=== PATIENT | male | born 1950 | race Caucasian/White ===

== ENCOUNTER 2020-12-06 08:51 | Day surgery (SDC) | payer OTHER ==
[2020-12-06 09:58] VITALS: TEMP 98
[2020-12-06 10:07] VITALS: BMI 19.7
[2020-12-06] MEDS ORDERED: KETAMINE HCL 200 MG/20 ML VIAL ONE (11:05)
[2020-12-06] MEDS ORDERED: DEXAMETHASONE SOD PHOSPHATE 4 MG/1 ML VIAL ONE (11:05)
[2020-12-06] MEDS ORDERED: ONDANSETRON 4 MG/2 ML VIAL ONE (11:05)
[2020-12-06] MEDS ORDERED: PROPOFOL 20 ML ONE (11:08)
[2020-12-06 12:56] VITALS: BP 140/81; PULSE 87
[2020-12-07 12:07] LABS: SARS-CoV-2 NAA Not Detected (Not Detected)
== END 2020-12-06 12:55 | disposition home or self-care (01) ==
LOC: FECT 08:51
PROVIDERS: ATTEND Psychiatry & Neurology Psychiatry
PROC: GZB4ZZZ Other Electroconvulsive Therapy (ICD-10-PCS; principal; 2020-12-06 11:00)
DX: F32.9 Major depressive disorder, single episode, unspecified (principal)
CPT/HCPCS: 90870; 94760; C9803; U0003; U0005

== ENCOUNTER 2020-12-09 05:50 | Day surgery (SDC) | payer OTHER ==
[2020-12-06 09:49] VITALS: BMI 19.6
[2020-12-09] MEDS ORDERED: KETAMINE HCL 500 MG/10 ML VIAL ONE (09:51)
[2020-12-09 10:20] VITALS: TEMP 98.2
[2020-12-09 11:21] VITALS: BP 129/82; PULSE 84
== END 2020-12-09 12:00 | disposition home or self-care (01) ==
LOC: FECT 05:50
PROVIDERS: ATTEND Psychiatry & Neurology Psychiatry
PROC: GZB4ZZZ Other Electroconvulsive Therapy (ICD-10-PCS; principal; 2020-12-09 09:00)
DX: F32.9 Major depressive disorder, single episode, unspecified (principal)
CPT/HCPCS: 90870; 94760

== ENCOUNTER 2020-12-10 06:40 | Day surgery (SDC) | payer OTHER ==
[2020-12-07 07:40] VITALS: BMI 19.7
[2020-12-10] MEDS ORDERED: KETAMINE HCL 500 MG/10 ML VIAL ONE (07:53)
[2020-12-10] MEDS ORDERED: KETOROLAC TROMETHAMINE 30 MG/1 ML VIAL ONE (08:00)
[2020-12-10 09:10] VITALS: BP 122/80; PULSE 87; TEMP 98
[2020-12-11 11:10] LABS: SARS-CoV-2 NAA Not Detected (Not Detected)
== END 2020-12-10 09:40 | disposition home or self-care (01) ==
LOC: FECT 06:40
PROVIDERS: ATTEND Psychiatry & Neurology Psychiatry
PROC: GZB4ZZZ Other Electroconvulsive Therapy (ICD-10-PCS; principal; 2020-12-10 08:30)
DX: F32.9 Major depressive disorder, single episode, unspecified (principal)
CPT/HCPCS: 90870; 94760; C9803; U0003; U0005

== ENCOUNTER 2020-12-13 08:10 | Day surgery (SDC) | payer OTHER ==
[2020-12-07 07:54] VITALS: BMI 19.7
[2020-12-13] MEDS ORDERED: KETAMINE HCL 500 MG/10 ML VIAL ONE (09:35)
[2020-12-13] MEDS ORDERED: DEXAMETHASONE SOD PHOSPHATE 4 MG/1 ML VIAL ONE (09:36)
[2020-12-13] MEDS ORDERED: KETOROLAC TROMETHAMINE 30 MG/1 ML VIAL ONE (09:36)
[2020-12-13] MEDS ORDERED: ONDANSETRON 4 MG/2 ML VIAL ONE (09:36)
[2020-12-13] MEDS ORDERED: SEVOFLURANE 250 ML BTL ONE (09:47)
[2020-12-13] MEDS ORDERED: DESFLURANE GAS 240 ML BOTTLE IH ONE (09:47)
[2020-12-13 10:46] VITALS: PULSE 83; TEMP 97.7
[2020-12-13 11:35] VITALS: BP 126/78
[2020-12-14 08:08] LABS: SARS-CoV-2 NAA Not Detected (Not Detected)
== END 2020-12-13 12:00 | disposition home or self-care (01) ==
LOC: FECT 08:10
PROVIDERS: ATTEND Psychiatry & Neurology Psychiatry
PROC: GZB4ZZZ Other Electroconvulsive Therapy (ICD-10-PCS; principal; 2020-12-13 10:00)
DX: F32.9 Major depressive disorder, single episode, unspecified (principal)
CPT/HCPCS: 90870; 94760; C9803; U0003; U0005

== ENCOUNTER 2020-12-16 06:49 | Day surgery (SDC) | payer OTHER ==
[2020-12-13 14:28] VITALS: BMI 19.6
[2020-12-16] MEDS ORDERED: KETAMINE HCL 500 MG/10 ML VIAL ONE (08:30)
[2020-12-16 09:45] VITALS: TEMP 97.7
[2020-12-16 10:21] VITALS: BP 122/73; PULSE 88
[2020-12-17 07:07] LABS: SARS-CoV-2 NAA Not Detected (Not Detected)
== END 2020-12-16 10:30 | disposition home or self-care (01) ==
LOC: FECT 06:49
PROVIDERS: ATTEND Psychiatry & Neurology Psychiatry
PROC: GZB4ZZZ Other Electroconvulsive Therapy (ICD-10-PCS; principal; 2020-12-16 07:30)
DX: F32.9 Major depressive disorder, single episode, unspecified (principal)
CPT/HCPCS: 90870; 94760; C9803; U0003; U0005

== ENCOUNTER 2020-12-17 05:57 | Day surgery (SDC) | payer OTHER ==
[2020-12-14 07:08] VITALS: BMI 19.6
[2020-12-17] MEDS ORDERED: PROPOFOL 20 ML ONE (07:09)
[2020-12-17] MEDS ORDERED: SUCCINYLCHOLINE CHLORIDE 200 MG/10 ML SYRINGE ONE (07:09)
[2020-12-17] MEDS ORDERED: DEXAMETHASONE SOD PHOSPHATE 4 MG/1 ML VIAL ONE (07:09)
[2020-12-17] MEDS ORDERED: KETOROLAC TROMETHAMINE 30 MG/1 ML VIAL ONE (07:09)
[2020-12-17] MEDS ORDERED: ONDANSETRON 4 MG/2 ML VIAL ONE (07:09)
[2020-12-17] MEDS ORDERED: KETAMINE HCL 500 MG/10 ML VIAL ONE (07:11)
[2020-12-17] MEDS ORDERED: ONDANSETRON 4 MG/2 ML VIAL IVPUSH PRN (07:39)
[2020-12-17] MEDS ORDERED: LACTATED RINGERS SOLUTION 1,000 ML IV SCH (07:45)
[2020-12-17 08:33] VITALS: TEMP 98
[2020-12-17 08:51] VITALS: BP 139/79
[2020-12-17 09:28] VITALS: PULSE 80
== END 2020-12-17 09:10 | disposition home or self-care (01) ==
LOC: FECT 05:57
PROVIDERS: ATTEND Psychiatry & Neurology Psychiatry
PROC: GZB4ZZZ Other Electroconvulsive Therapy (ICD-10-PCS; principal; 2020-12-17 08:00)
DX: F32.9 Major depressive disorder, single episode, unspecified (principal)
CPT/HCPCS: 90870; 94760

== ENCOUNTER 2020-12-20 06:49 | Day surgery (SDC) | payer OTHER ==
[2020-12-14 07:12] VITALS: BMI 19.6
[2020-12-20] MEDS ORDERED: KETAMINE HCL 500 MG/10 ML VIAL ONE (09:15)
[2020-12-20 09:55] VITALS: TEMP 98.2
[2020-12-20 10:48] VITALS: BP 131/75; PULSE 82
[2020-12-21 07:07] LABS: SARS-CoV-2 NAA Not Detected (Not Detected)
== END 2020-12-20 11:15 | disposition home or self-care (01) ==
LOC: FECT 06:49
PROVIDERS: ATTEND Psychiatry & Neurology Psychiatry
PROC: GZB4ZZZ Other Electroconvulsive Therapy (ICD-10-PCS; principal; 2020-12-20 07:30)
DX: F32.9 Major depressive disorder, single episode, unspecified (principal)
CPT/HCPCS: 90870; 94760; C9803; U0003; U0005

== ENCOUNTER 2020-12-23 07:15 | Day surgery (SDC) | payer OTHER ==
[2020-12-14 07:36] VITALS: BMI 19.6
[2020-12-23] MEDS ORDERED: KETAMINE HCL 500 MG/10 ML VIAL ONE (08:23)
[2020-12-23] MEDS ORDERED: KETOROLAC TROMETHAMINE 30 MG/1 ML VIAL ONE (08:29)
[2020-12-23] MEDS ORDERED: DEXAMETHASONE SOD PHOSPHATE 4 MG/1 ML VIAL ONE (08:29)
[2020-12-23] MEDS ORDERED: ONDANSETRON 4 MG/2 ML VIAL ONE (08:29)
[2020-12-23 09:54] VITALS: TEMP 98
[2020-12-23 09:56] VITALS: BP 133/76; PULSE 87
== END 2020-12-23 10:15 | disposition home or self-care (01) ==
LOC: FECT 07:15
PROVIDERS: ATTEND Psychiatry & Neurology Psychiatry
PROC: GZB4ZZZ Other Electroconvulsive Therapy (ICD-10-PCS; principal; 2020-12-23 08:15)
DX: F32.9 Major depressive disorder, single episode, unspecified (principal)
CPT/HCPCS: 90870; 94760

== ENCOUNTER 2022-06-13 07:54 | Day surgery (SDC) | payer OTHER ==
[2022-06-12 16:23] VITALS: BMI 21.4
[2022-06-13] MEDS ORDERED: ACETAMINOPHEN INJECTION 100 ML IVPB ONE (09:44)
[2022-06-13] MEDS ORDERED: ACETAMINOPHEN 1000 MG/100 ML BAG IVPB ONE (10:10)
[2022-06-13 10:25] VITALS: RESP 18; TEMP 98
[2022-06-13 10:55] VITALS: BP 129/76; PULSE 71
== END 2022-06-13 10:57 | disposition home or self-care (01) ==
LOC: FECT 07:54
PROVIDERS: ATTEND Psychiatry & Neurology Psychiatry
PROC: GZB4ZZZ Other Electroconvulsive Therapy (ICD-10-PCS; principal; 2022-06-13 09:19)
DX: F32.A Depression, unspecified (principal)
CPT/HCPCS: 90870; 94760; C9803-CS; U0003; U0005

== ENCOUNTER 2022-06-15 07:42 | Day surgery (SDC) | payer OTHER ==
[2022-06-15 08:10] VITALS: BMI 21.4
[2022-06-15] MEDS ORDERED: ACETAMINOPHEN 1000 MG/100 ML BAG IVPB ONE (09:20)
[2022-06-15 09:41] VITALS: TEMP 97.3
[2022-06-15 10:06] VITALS: RESP 18
[2022-06-15 10:24] VITALS: BP 138/78; PULSE 78
== END 2022-06-15 10:46 | disposition home or self-care (01) ==
LOC: FECT 07:42
PROVIDERS: ATTEND Psychiatry & Neurology Psychiatry
PROC: GZB4ZZZ Other Electroconvulsive Therapy (ICD-10-PCS; principal; 2022-06-15 09:01)
DX: F33.2 Major depressive disorder, recurrent severe without psychotic features (principal)
CPT/HCPCS: 90870; 94760

== ENCOUNTER 2022-06-16 06:10 | Day surgery (SDC) | payer OTHER ==
[2022-06-12 17:20] VITALS: BMI 21.4
[2022-06-16 08:51] VITALS: TEMP 98
[2022-06-16 09:12] VITALS: RESP 18
[2022-06-16 09:51] VITALS: BP 140/86; PULSE 88
== END 2022-06-16 09:40 | disposition home or self-care (01) ==
LOC: FECT 06:10
PROVIDERS: ATTEND Psychiatry & Neurology Psychiatry
PROC: GZB4ZZZ Other Electroconvulsive Therapy (ICD-10-PCS; principal; 2022-06-16 08:30)
DX: F33.2 Major depressive disorder, recurrent severe without psychotic features (principal)
CPT/HCPCS: 90870; 94760

== ENCOUNTER 2022-06-20 06:31 | Day surgery (SDC) | payer OTHER ==
[2022-06-16 09:15] VITALS: BMI 21.4
[2022-06-20 10:01] VITALS: RESP 18
[2022-06-20 10:18] VITALS: TEMP 98
[2022-06-20 11:04] VITALS: BP 141/85; PULSE 86
== END 2022-06-20 10:35 | disposition home or self-care (01) ==
LOC: FECT 06:31
PROVIDERS: ATTEND Psychiatry & Neurology Psychiatry
PROC: GZB4ZZZ Other Electroconvulsive Therapy (ICD-10-PCS; principal; 2022-06-20 08:57)
DX: F32.A Depression, unspecified (principal)
CPT/HCPCS: 90870; 94760

== ENCOUNTER 2022-06-22 07:12 | Day surgery (SDC) | payer OTHER ==
[2022-06-20 15:39] VITALS: BMI 21.4
[2022-06-22 09:54] VITALS: RESP 16; TEMP 97.8
[2022-06-22 10:43] VITALS: BP 140/89; PULSE 82
== END 2022-06-22 10:39 | disposition home or self-care (01) ==
LOC: FECT 07:12
PROVIDERS: ATTEND Psychiatry & Neurology Psychiatry
PROC: GZB4ZZZ Other Electroconvulsive Therapy (ICD-10-PCS; principal; 2022-06-22 09:37)
DX: F32.A Depression, unspecified (principal)
CPT/HCPCS: 90870; 94760

== ENCOUNTER 2022-06-23 06:27 | Day surgery (SDC) | payer OTHER ==
[2022-06-20 15:31] VITALS: BMI 21.4
[2022-06-23 07:07] VITALS: RESP 18
[2022-06-23 09:33] VITALS: TEMP 97.8
[2022-06-23 09:43] VITALS: BP 132/76; PULSE 86
== END 2022-06-23 09:55 | disposition home or self-care (01) ==
LOC: FECT 06:27
PROVIDERS: ATTEND Psychiatry & Neurology Psychiatry
PROC: GZB4ZZZ Other Electroconvulsive Therapy (ICD-10-PCS; principal; 2022-06-23 08:39)
DX: F32.A Depression, unspecified (principal)
CPT/HCPCS: 90870; 94760; C9803-CS; U0003; U0005

== ENCOUNTER 2022-06-27 06:18 | Day surgery (SDC) | payer OTHER ==
[2022-06-20 15:48] VITALS: BMI 21.4
[2022-06-27 08:48] VITALS: RESP 18; TEMP 97.6
[2022-06-27 09:16] VITALS: BP 139/79; PULSE 87
== END 2022-06-27 09:25 | disposition home or self-care (01) ==
LOC: FECT 06:18
PROVIDERS: ATTEND Psychiatry & Neurology Psychiatry
PROC: GZB4ZZZ Other Electroconvulsive Therapy (ICD-10-PCS; principal; 2022-06-27 08:03)
DX: F32.A Depression, unspecified (principal)
CPT/HCPCS: 90870; 94760

== ENCOUNTER 2022-07-07 06:19 | Day surgery (SDC) | payer OTHER ==
[2022-07-04 08:55] VITALS: BMI 21.4
[2022-07-07] MEDS ORDERED: PROPOFOL 20 ML ONE (07:58)
[2022-07-07] MEDS ORDERED: ONDANSETRON 4 MG/2 ML VIAL ONE ×2 (07:58→08:33)
[2022-07-07] MEDS ORDERED: SUCCINYLCHOLINE CHLORIDE 200 MG/10 ML SYRINGE ONE (07:58)
[2022-07-07 08:49] VITALS: PULSE 88
[2022-07-07 09:23] VITALS: BP 124/73; RESP 18; TEMP 98
[2022-07-07] MEDS ORDERED: LACTATED RINGERS SOLUTION 1,000 ML IV SCH (11:15)
== END 2022-07-07 09:20 | disposition home or self-care (01) ==
LOC: FECT 06:19
PROVIDERS: ATTEND Psychiatry & Neurology Psychiatry
PROC: GZB4ZZZ Other Electroconvulsive Therapy (ICD-10-PCS; principal; 2022-07-07 08:07)
DX: F32.A Depression, unspecified (principal)
CPT/HCPCS: 90870; 94760; C9803-CS; U0003; U0005

== ENCOUNTER 2022-07-11 06:01 | Day surgery (SDC) | payer OTHER ==
[2022-07-10 12:23] VITALS: BMI 21.4
[2022-07-11] MEDS ORDERED: SUCCINYLCHOLINE CHLORIDE 200 MG/10 ML SYRINGE ONE (07:30)
[2022-07-11] MEDS ORDERED: PROPOFOL 40 ML ONE (07:30)
[2022-07-11 08:53] VITALS: RESP 18
[2022-07-11 09:11] VITALS: BP 133/75; PULSE 73; TEMP 98
== END 2022-07-11 09:05 | disposition home or self-care (01) ==
LOC: FECT 06:01
PROVIDERS: ATTEND Psychiatry & Neurology Psychiatry
PROC: GZB4ZZZ Other Electroconvulsive Therapy (ICD-10-PCS; principal; 2022-07-11 07:39)
DX: F32.A Depression, unspecified (principal)
CPT/HCPCS: 90870; 94760; C9803-CS; U0003; U0005

== ENCOUNTER 2022-07-13 06:16 | Day surgery (SDC) | payer OTHER ==
[2022-07-13 06:51] VITALS: BMI 20.7
[2022-07-13] MEDS ORDERED: PROPOFOL 20 ML ONE ×3 (07:35→08:29)
[2022-07-13] MEDS ORDERED: SUCCINYLCHOLINE CHLORIDE 200 MG/10 ML SYRINGE ONE ×2 (07:35→08:28)
[2022-07-13 08:36] VITALS: TEMP 97.8
[2022-07-13 08:46] VITALS: RESP 18
[2022-07-13 09:06] VITALS: BP 113/77; PULSE 89
== END 2022-07-13 09:00 | disposition home or self-care (01) ==
LOC: FECT 06:16
PROVIDERS: ATTEND Psychiatry & Neurology Psychiatry
PROC: GZB4ZZZ Other Electroconvulsive Therapy (ICD-10-PCS; principal; 2022-07-13 07:50)
DX: F32.A Depression, unspecified (principal)
CPT/HCPCS: 90870; 94760

== ENCOUNTER 2022-07-14 06:09 | Day surgery (SDC) | payer OTHER ==
[2022-07-14 07:15] VITALS: BMI 20.7
[2022-07-14] MEDS ORDERED: ONDANSETRON 4 MG/2 ML VIAL ONE (08:04)
[2022-07-14] MEDS ORDERED: KETOROLAC TROMETHAMINE 30 MG/1 ML VIAL ONE (08:04)
[2022-07-14 08:48] VITALS: PULSE 76
[2022-07-14 09:11] VITALS: TEMP 98
[2022-07-14 09:22] VITALS: BP 128/83; RESP 18
== END 2022-07-14 09:20 | disposition home or self-care (01) ==
LOC: FECT 06:09
PROVIDERS: ATTEND Psychiatry & Neurology Psychiatry
PROC: GZB4ZZZ Other Electroconvulsive Therapy (ICD-10-PCS; principal; 2022-07-14 08:12)
DX: F32.A Depression, unspecified (principal)
CPT/HCPCS: 90870; 94760; C9803-CS; U0003; U0005

== ENCOUNTER 2022-07-18 05:50 | Day surgery (SDC) | payer OTHER ==
[2022-07-17 07:34] VITALS: BMI 20.6
[2022-07-18] MEDS ORDERED: PROPOFOL 20 ML ONE ×2 (08:28→08:41)
[2022-07-18] MEDS ORDERED: SUCCINYLCHOLINE CHLORIDE 200 MG/10 ML SYRINGE ONE ×2 (08:28→08:58)
[2022-07-18 09:38] VITALS: RESP 18; TEMP 97.5
[2022-07-18 09:48] VITALS: BP 122/85; PULSE 84
== END 2022-07-18 09:49 | disposition home or self-care (01) ==
LOC: FECT 05:50
PROVIDERS: ATTEND Psychiatry & Neurology Psychiatry
PROC: GZB4ZZZ Other Electroconvulsive Therapy (ICD-10-PCS; principal; 2022-07-18 08:36)
DX: F33.2 Major depressive disorder, recurrent severe without psychotic features (principal)
CPT/HCPCS: 90870; 94760; C9803-CS; U0003; U0005

== ENCOUNTER 2022-07-21 09:29 | Day surgery (SDC) | payer OTHER ==
[2022-07-17 07:37] VITALS: BMI 20.6
[2022-07-21 11:38] VITALS: TEMP 97.7
[2022-07-21 12:13] VITALS: RESP 18
[2022-07-21 12:26] VITALS: BP 124/75; PULSE 78
== END 2022-07-21 12:25 | disposition home or self-care (01) ==
LOC: FECT 09:29
PROVIDERS: ATTEND Psychiatry & Neurology Psychiatry
PROC: GZB4ZZZ Other Electroconvulsive Therapy (ICD-10-PCS; principal; 2022-07-21 10:59)
DX: F32.A Depression, unspecified (principal)
CPT/HCPCS: 90870; 94760; C9803-CS; U0003; U0005

== ENCOUNTER 2022-07-25 06:42 | Day surgery (SDC) | payer OTHER ==
[2022-07-24 09:50] VITALS: BMI 20.6
[2022-07-25] MEDS ORDERED: PROPOFOL 20 ML ONE (08:42)
[2022-07-25 09:10] VITALS: TEMP 98.2
[2022-07-25 09:57] VITALS: RESP 16
[2022-07-25 10:01] VITALS: BP 128/74; PULSE 76
== END 2022-07-25 10:04 | disposition home or self-care (01) ==
LOC: FECT 06:42
PROVIDERS: ATTEND Psychiatry & Neurology Psychiatry
PROC: GZB4ZZZ Other Electroconvulsive Therapy (ICD-10-PCS; principal; 2022-07-25 08:48)
DX: F32.A Depression, unspecified (principal)
CPT/HCPCS: 90870; 94760; C9803-CS; U0003; U0005

== ENCOUNTER 2022-07-27 09:03 | Day surgery (SDC) | payer OTHER ==
[2022-07-24 09:56] VITALS: BMI 20.6
[2022-07-27 10:45] VITALS: RESP 16; TEMP 97.9
[2022-07-27 11:36] VITALS: BP 128/74; PULSE 74
== END 2022-07-27 11:32 | disposition home or self-care (01) ==
LOC: FECT 09:03
PROVIDERS: ATTEND Psychiatry & Neurology Psychiatry
PROC: GZB4ZZZ Other Electroconvulsive Therapy (ICD-10-PCS; principal; 2022-07-27 09:57)
DX: F32.A Depression, unspecified (principal)
CPT/HCPCS: 90870; 94760

== ENCOUNTER 2022-10-24 08:06 | Day surgery (SDC) | payer OTHER ==
[2022-10-24 08:48] VITALS: BMI 20.3
[2022-10-24 10:49] VITALS: BP 130/76; RESP 18
[2022-10-24 11:09] VITALS: PULSE 86; TEMP 98
[2022-10-24] MEDS ORDERED: DEXAMETHASONE SOD PHOSPHATE 4 MG/1 ML VIAL ONE (11:25)
== END 2022-10-24 11:09 | disposition home or self-care (01) ==
LOC: FECT 08:06
PROVIDERS: ATTEND Psychiatry & Neurology Psychiatry
PROC: GZB4ZZZ Other Electroconvulsive Therapy (ICD-10-PCS; principal; 2022-10-24 10:09)
DX: F32.A Depression, unspecified (principal)
CPT/HCPCS: 90870; 94760

== ENCOUNTER 2022-10-30 06:42 | Day surgery (SDC) | payer OTHER ==
[2022-10-24 15:47] VITALS: BMI 20.2
[2022-10-30 09:18] VITALS: RESP 18; TEMP 97.8
[2022-10-30 09:24] VITALS: BP 118/72; PULSE 86
== END 2022-10-30 09:38 | disposition home or self-care (01) ==
LOC: FECT 06:42
PROVIDERS: ATTEND Psychiatry & Neurology Psychiatry
PROC: GZB4ZZZ Other Electroconvulsive Therapy (ICD-10-PCS; principal; 2022-10-30 08:22)
DX: F33.2 Major depressive disorder, recurrent severe without psychotic features (principal)
CPT/HCPCS: 90870; 94760

== ENCOUNTER → 2022-11-07 | Day surgery (SDC) | payer OTHER ==
[2022-11-01 14:35] VITALS: BMI 20.2
[~2022-11-07] MED LIST: LACTATED RINGERS SOLUTION 1,000 ML IV SCH
[2022-11-07 12:23] VITALS: BP 124/78; PULSE 73; RESP 19; TEMP 97.8
== END | disposition home or self-care (01) ==
LOC: FECT 10:19
PROVIDERS: ATTEND Psychiatry & Neurology Psychiatry
PROC: GZB4ZZZ Other Electroconvulsive Therapy (ICD-10-PCS; principal; 2022-11-07 11:33)
DX: F32.A Depression, unspecified (principal)
CPT/HCPCS: 90870; 94760

== ENCOUNTER 2022-11-14 07:53 | Day surgery (SDC) | payer OTHER ==
[2022-11-08 16:02] VITALS: BMI 20.2
[2022-11-14] MEDS ORDERED: METOPROLOL TARTRATE 5 MG/5 ML VIAL ONE (09:29)
[2022-11-14 10:14] VITALS: RESP 18; TEMP 97.8
[2022-11-14 10:33] VITALS: BP 131/75; PULSE 77
[2022-11-14] MEDS ORDERED: ACETAMINOPHEN 500 MG TABLET (FP) PO PRN (12:18)
[2022-11-14] MEDS ORDERED: PROMETHAZINE HCL 25 MG/1 ML VIAL IVPB PRN (12:18)
[2022-11-14] MEDS ORDERED: LACTATED RINGERS SOLUTION 1,000 ML IV SCH (12:30)
== END 2022-11-14 10:40 | disposition home or self-care (01) ==
LOC: FECT 07:53
PROVIDERS: ATTEND Psychiatry & Neurology Psychiatry
PROC: GZB4ZZZ Other Electroconvulsive Therapy (ICD-10-PCS; principal; 2022-11-14 09:25)
DX: F33.2 Major depressive disorder, recurrent severe without psychotic features (principal)
CPT/HCPCS: 90870; 94760

== ENCOUNTER 2022-11-28 09:53 | Day surgery (SDC) | payer OTHER ==
[2022-11-21 14:21] VITALS: BMI 20.2
[2022-11-28] MEDS ORDERED: KETAMINE HCL 500 MG/10 ML VIAL ONE (12:13)
[2022-11-28] MEDS ORDERED: METOPROLOL TARTRATE 5 MG/5 ML VIAL ONE (12:53)
[2022-11-28 13:54] VITALS: RESP 18
[2022-11-28 13:56] VITALS: BP 139/83; PULSE 77; TEMP 98
== END 2022-11-28 14:00 | disposition home or self-care (01) ==
LOC: FECT 09:53
PROVIDERS: ATTEND Psychiatry & Neurology Psychiatry
PROC: GZB4ZZZ Other Electroconvulsive Therapy (ICD-10-PCS; principal; 2022-11-28 12:44)
DX: F33.2 Major depressive disorder, recurrent severe without psychotic features (principal)
CPT/HCPCS: 90870; 94760

== ENCOUNTER 2022-12-14 07:04 | Day surgery (SDC) | payer OTHER ==
[2022-12-08 16:45] VITALS: BMI 20.2
[2022-12-14 07:38] VITALS: TEMP 97.7
[2022-12-14 10:08] VITALS: RESP 18
[2022-12-14 10:10] VITALS: BP 128/78; PULSE 79
== END 2022-12-14 09:50 | disposition home or self-care (01) ==
LOC: FECT 07:04
PROVIDERS: ATTEND Psychiatry & Neurology Psychiatry
PROC: GZB4ZZZ Other Electroconvulsive Therapy (ICD-10-PCS; principal; 2022-12-14 08:47)
DX: F33.2 Major depressive disorder, recurrent severe without psychotic features (principal)
CPT/HCPCS: 90870; 93005; 94760

== ENCOUNTER 2022-12-28 06:38 | Day surgery (SDC) | payer OTHER ==
[2022-12-28 07:00] VITALS: BMI 21.9
[2022-12-28] MEDS ORDERED: METOPROLOL TARTRATE 5 MG/5 ML VIAL ONE (08:49)
[2022-12-28 09:01] VITALS: TEMP 98.4
[2022-12-28 09:41] VITALS: RESP 18
[2022-12-28 09:58] VITALS: BP 133/76; PULSE 64
== END 2022-12-28 10:00 | disposition home or self-care (01) ==
LOC: FECT 06:38
PROVIDERS: ATTEND Psychiatry & Neurology Psychiatry
PROC: GZB4ZZZ Other Electroconvulsive Therapy (ICD-10-PCS; principal; 2022-12-28 08:41)
DX: F32.A Depression, unspecified (principal)
CPT/HCPCS: 90870; 94760

== ENCOUNTER 2023-01-12 07:26 | Day surgery (SDC) | payer OTHER ==
[2023-01-09 07:12] VITALS: BMI 20.2
[2023-01-12] MEDS ORDERED: BUPIVACAINE HCL/PF 0.25% (2.5MG/ML) 10 ML VIAL ONE (09:42)
[2023-01-12 10:06] VITALS: BP 118/79; PULSE 74; RESP 18; TEMP 97
== END 2023-01-12 10:15 | disposition home or self-care (01) ==
LOC: FECT 07:26
PROVIDERS: ATTEND Psychiatry & Neurology Psychiatry
PROC: GZB4ZZZ Other Electroconvulsive Therapy (ICD-10-PCS; principal; 2023-01-12 08:43)
DX: F33.2 Major depressive disorder, recurrent severe without psychotic features (principal)
CPT/HCPCS: 90870; 94760

== ENCOUNTER 2023-01-25 09:04 | Day surgery (SDC) | payer OTHER ==
[2023-01-25 09:29] VITALS: BMI 222.3
[2023-01-25] MEDS ORDERED: METOPROLOL TARTRATE 5 MG/5 ML VIAL ONE (10:51)
[2023-01-25] MEDS ORDERED: ACETAMINOPHEN 325 MG TABLET (FP) PO PRN (11:03)
[2023-01-25] MEDS ORDERED: PROMETHAZINE HCL 25 MG/1 ML VIAL IVPB PRN (11:03)
[2023-01-25] MEDS ORDERED: LACTATED RINGERS SOLUTION 1,000 ML IV SCH (11:15)
[2023-01-25 11:50] VITALS: BP 122/81; PULSE 69; RESP 18; TEMP 98
== END 2023-01-25 12:20 | disposition home or self-care (01) ==
LOC: FECT 09:04
PROVIDERS: ATTEND Psychiatry & Neurology Psychiatry
PROC: GZB4ZZZ Other Electroconvulsive Therapy (ICD-10-PCS; principal; 2023-01-25 10:47)
DX: F32.A Depression, unspecified (principal)
CPT/HCPCS: 90870; 94760

== ENCOUNTER 2023-02-08 07:41 | Day surgery (SDC) | payer OTHER ==
[2023-02-08 08:37] VITALS: RESP 18; TEMP 97.9; BMI 20.7
[2023-02-08 10:58] VITALS: BP 121/75; PULSE 65
== END 2023-02-08 10:35 | disposition home or self-care (01) ==
LOC: FECT 07:41
PROVIDERS: ATTEND Psychiatry & Neurology Psychiatry
PROC: GZB4ZZZ Other Electroconvulsive Therapy (ICD-10-PCS; principal; 2023-02-08 09:16)
DX: F32.A Depression, unspecified (principal)
CPT/HCPCS: 90870; 94760

== ENCOUNTER 2023-03-06 09:27 | Day surgery (SDC) | payer OTHER ==
[2023-02-22 15:06] VITALS: BMI 20.7
[2023-03-06 11:25] VITALS: TEMP 98.1
[2023-03-06 11:54] VITALS: BP 138/76; PULSE 74; RESP 18
== END 2023-03-06 12:15 | disposition home or self-care (01) ==
LOC: FECT 09:27
PROVIDERS: ATTEND Psychiatry & Neurology Psychiatry
PROC: GZB4ZZZ Other Electroconvulsive Therapy (ICD-10-PCS; principal; 2023-03-06 11:06)
DX: F32.A Depression, unspecified (principal)
CPT/HCPCS: 90870; 94760

== ENCOUNTER 2023-04-05 08:59 | Day surgery (SDC) | payer OTHER ==
[2023-03-28 08:10] VITALS: BMI 20.7
[2023-04-05 09:16] VITALS: RESP 16
[2023-04-05 11:20] VITALS: TEMP 98.2
[2023-04-05 11:44] VITALS: BP 137/65; PULSE 76
== END 2023-04-05 11:45 | disposition home or self-care (01) ==
LOC: FECT 08:59
PROVIDERS: ATTEND Psychiatry & Neurology Psychiatry
PROC: GZB4ZZZ Other Electroconvulsive Therapy (ICD-10-PCS; principal; 2023-04-05 10:18)
DX: F32.A Depression, unspecified (principal)
CPT/HCPCS: 90870; 94760